=== PATIENT | male | born 1970 | race Caucasian/White ===

== ENCOUNTER 2021-09-18 08:43 | Inpatient (IN) ==
[2021-09-18 09:03] LABS: Basophils # 0.1 10*3/uL (0.0-0.2); Basophils % 0.8 % (0.0-0.8); Eosinophils # 0.3 10*3/uL (0.0-0.87); Eosinophils % 3.4 % (0.00-10.9); Hematocrit 44.6 VOL% (42.0-52.0); Hemoglobin 14.8 GM/DL (14.0-18.0); Immature Granulocytes % 0.4 %; Immature Granulocytes Absolute 0.03 #; Lymphocytes # 1.6 10*3/uL (1.4-4.0); Mean Corpuscular HGB Conc 33.2 GM/DL (32-36); Mean Corpuscular Volume 89.4 FL (87-102); Mean Platelet Volume 10.8 FL (9.6-12.0); Monocytes # 0.6 10*3/uL (0.11-0.8); Monocytes % 7.6 % (1.7-12.7); Neutrophils % 67.8 % (38.7-73.9); Platelet Count 224 T/CUMM (130-400); Red Blood Count 4.99 MC/CUMM (3.8-5.5); White Blood Count 7.8 T/CUMM (4-12)
[2021-09-18] MEDS ORDERED: methylPREDNISolone SOD SUC 125 MG/2 ML VIAL IV STA (09:12)
[2021-09-18] MEDS ORDERED: FUROSEMIDE 40 MG/4 ML VIAL IV STA (09:12)
[2021-09-18] MEDS ORDERED: ALBUTEROL/IPRATROPIUM 3 ML NEB RESP TX STA (09:12)
[2021-09-18 09:43] LABS: Alanine Aminotransferase 24 U/L (16-61); Albumin 3.8 G/DL (3.4-5.0); Alkaline Phosphatase 89 U/L (45-117); Aspartate Amino Transferase 12 U/L (0-37); Bilirubin,Total < 0.39 MG/DL (0.20-1.00); Blood Urea Nitrogen 19 MG/DL (7-18); Calcium 9.4 MG/DL (8.5-10.1); Carbon Dioxide 22 MMOL/L (21-32); Chloride 110 MMOL/L (98-107); Glucose 162 MG/DL (74-106); Osmolality,Calculated 282.5 MOS/KG (273-304); Potassium 4.3 MMOL/L (3.5-5.1); Sodium 139 MMOL/L (136-145); Total Protein 7.1 G/DL (6.4-8.2)
[2021-09-18] MEDS ORDERED: DOCUSATE SODIUM 100 MG CAPSULE PO PRN (12:03)
[2021-09-18] MEDS ORDERED: ONDANSETRON 4 MG/2 ML VIAL IV PRN (12:03)
[2021-09-18] MEDS ORDERED: ACETAMINOPHEN 325 MG TABLET PO PRN (12:03)
[2021-09-18] MEDS ORDERED: GLUCAGON 1 MG VIAL IM PRN (12:03)
[2021-09-18] MEDS ORDERED: DEXTROSE 50% 25 GM/50 ML VIAL IV PRN (12:13)
[2021-09-18] MEDS ORDERED: DEXTROSE 10% 250 ML BAG IV PRN (12:14)
[2021-09-18] MEDS: PANTOPRAZOLE 40 MG TABLET PO SCH (12:39)
[2021-09-18] MEDS ORDERED: HEPARIN/NACL 0.9% 2 UNITS/ML 2,000 UNIT/1,000 ML BAG IV ONE (12:49)
[2021-09-18] MEDS ORDERED: diphenhydrAMINE CAP 50 MG CAPSULE PO ONE (12:53)
[2021-09-18] MEDS ORDERED: DIAZEPAM 5 MG TABLET PO ONE (12:53)
[2021-09-18] MEDS ORDERED: NITROGLYCERIN DRIP 50 MG/250 ML BOTTLE IV ONE (13:22)
[2021-09-18] MEDS ORDERED: VERAPAMIL 5 MG/2 ML VIAL ONE (13:23)
[2021-09-18] MEDS ORDERED: fentaNYL 100 MCG/2 ML VIAL ONE (13:28)
[2021-09-18] MEDS ORDERED: MIDAZOLAM 2 MG/2 ML VIAL ONE ×2 (13:28→13:42)
[2021-09-18] MEDS ORDERED: ASPIRIN 325 MG TABLET ONE (13:30)
[2021-09-18] MEDS ORDERED: HYDROmorphone 1 MG/1 ML SYRINGE ONE (13:41)
[2021-09-18] MEDS ORDERED: HEPARIN 5,000 UNIT/1 ML VIAL ONE (13:45)
[2021-09-18] MEDS ORDERED: ALPRAZolam 0.25 MG TABLET PO PRN (16:26)
[2021-09-18] MEDS: INSULIN LISPRO 100 UNIT/ML SUBCUT SCH ×2 (17:36→21:06)
[2021-09-18] MEDS: carvediloL 3.125 MG TABLET PO SCH (18:00)
[2021-09-18] MEDS ORDERED: ATORVASTATIN 80 MG TABLET PO SCH (21:00)
[2021-09-18] MEDS ORDERED: ENOXAPARIN 40 MG/0.4 ML SYRINGE SUBCUT SCH (21:00)
[2021-09-18] MEDS ORDERED: ATORVASTATIN 40 MG TABLET PO SCH (21:00)
[2021-09-19 04:57] LABS: Basophils % 0.1 % (0.0-0.8); Hematocrit 40.5 VOL% (42.0-52.0); Hemoglobin 13.4 GM/DL (14.0-18.0); Immature Granulocytes % 0.6 %; Immature Granulocytes Absolute 0.11 #; Lymphocytes # 0.9 10*3/uL (1.4-4.0); Mean Corpuscular HGB Conc 33.1 GM/DL (32-36); Mean Corpuscular Volume 90.2 FL (87-102); Mean Platelet Volume 10.9 FL (9.6-12.0); Monocytes # 0.8 10*3/uL (0.11-0.8); Monocytes % 4.5 % (1.7-12.7); Neutrophils % 89.8 % (38.7-73.9); Platelet Count 217 T/CUMM (130-400); Red Blood Count 4.49 MC/CUMM (3.8-5.5); Red Cell Distribution Width 14.5 % (9.3-17.3); White Blood Count 17.8 T/CUMM (4-12)
[2021-09-19 05:19] LABS: Alanine Aminotransferase 21 U/L (16-61); Albumin 3.3 G/DL (3.4-5.0); Alkaline Phosphatase 82 U/L (45-117); Aspartate Amino Transferase 8 U/L (0-37); Bilirubin,Total < 0.39 MG/DL (0.20-1.00); Blood Urea Nitrogen 25 MG/DL (7-18); Calcium 9.1 MG/DL (8.5-10.1); Carbon Dioxide 25 MMOL/L (21-32); Chloride 106 MMOL/L (98-107); Cholesterol 139 MG/DL (50-200); Glucose 247 MG/DL (74-106); HDL Cholesterol 45 MG/DL (40-60); Osmolality,Calculated 284.8 MOS/KG (273-304); Potassium 4.4 MMOL/L (3.5-5.1); Risk Ratio 3.09; Sodium 137 MMOL/L (136-145); Total Protein 6.5 G/DL (6.4-8.2); Triglycerides 78 MG/DL (2-150); VLDL Cholesterol 15.6 MG/DL
[2021-09-19 05:23] LABS: Calcium 9.2 MG/DL (8.5-10.1); Osmolality,Calculated 284.8 MOS/KG (273-304); Potassium 4.4 MMOL/L (3.5-5.1)
[2021-09-19] MEDS ORDERED: ePHEDrine 50 MG/ML VIAL ONE (07:36)
[2021-09-19] MEDS ORDERED: KETAMINE 500 MG/10 ML VIAL ONE (07:36)
[2021-09-19] MEDS ORDERED: propofoL 200 MG/20 ML VIAL IV ONE (07:37)
[2021-09-19] MEDS ORDERED: ETOMIDATE 40 MG/20 ML VIAL IV ONE (07:37)
[2021-09-19] MEDS ORDERED: LIDOCAINE 2% 5 ML VIAL ONE (07:37)
[2021-09-19] MEDS: INSULIN LISPRO 100 UNIT/ML SUBCUT SCH ×2 (07:41→11:38)
[2021-09-19] MEDS ORDERED: SODIUM CHLORIDE 0.9% 1,000 ML IV SCH (08:00)
[2021-09-19] MEDS ORDERED: ALBUTEROL/IPRATROPIUM 3 ML NEB RESP TX ONE (08:12)
[2021-09-19] MEDS ORDERED: NON-FORMULARY MEDICATION (Pioglitazone 30 mg tablet) PO SCH (09:00)
[2021-09-19] MEDS ORDERED: DAPAGLIFLOZIN 10 MG TABLET PO SCH (09:00)
[2021-09-19] MEDS ORDERED: FUROSEMIDE 40 MG/4 ML VIAL IV SCH (09:00)
[2021-09-19] MEDS ORDERED: amLODIPine 5 MG TABLET PO SCH (09:00)
[2021-09-19] MEDS ORDERED: ASPIRIN EC 81 MG TABLET PO SCH (09:00)
[2021-09-19] MEDS: PANTOPRAZOLE 40 MG TABLET PO SCH (09:29)
[2021-09-19] MEDS: carvediloL 3.125 MG TABLET PO SCH (09:30)
[2021-09-19 12:00] VITALS: BP 130/92
[2021-09-19] MEDS ORDERED: EZETIMIBE 10 MG TABLET PO SCH (21:00)
[2021-09-20] MEDS ORDERED: FUROSEMIDE 20 MG TABLET PO SCH (09:00)
== END 2021-09-19 14:36 | disposition home or self-care (01) | DRG 280 ==
LOC: N.EDINP 08:43 → N.ED 08:43 → N.EDINP 13:08 → N.2W 15:18
PROVIDERS: ADMIT Internal Medicine; ATTEND Internal Medicine

== ENCOUNTER 2021-10-01 09:00 | Inpatient (IN) ==
[2021-10-01] MEDS ORDERED: GLUCAGON 1 MG VIAL IM PRN (09:40)
[2021-10-01] MEDS ORDERED: DEXTROSE 10% 250 ML BAG IV PRN (09:40)
[2021-10-01] MEDS ORDERED: SODIUM CHLORIDE 0.9% 1,000 ML IV SCH (10:00)
[2021-10-01] MEDS ORDERED: CLORAZEPATE 3.75 MG TABLET PO PRN (12:32)
[2021-10-01] MEDS: INSULIN REGULAR 100 UNIT/ML SUBCUT SCH ×3 (15:13→22:32)
[2021-10-01 15:20] LABS: Basophils # 0.1 10*3/uL (0.0-0.2); Eosinophils # 0.2 10*3/uL (0.0-0.87); Eosinophils % 3.3 % (0.00-10.9); Hematocrit 46.2 VOL% (42.0-52.0); Hemoglobin 15.5 GM/DL (14.0-18.0); Immature Granulocytes % 0.3 %; Immature Granulocytes Absolute 0.02 #; Lymphocytes # 1.6 10*3/uL (1.4-4.0); Lymphocytes % 21.5 % (21.2-54.2); Mean Corpuscular HGB Conc 33.5 GM/DL (32-36); Mean Corpuscular Volume 87.3 FL (87-102); Mean Platelet Volume 10.7 FL (9.6-12.0); Monocytes # 0.6 10*3/uL (0.11-0.8); Monocytes % 8.4 % (1.7-12.7); Neutrophils % 65.5 % (38.7-73.9); Platelet Count 246 T/CUMM (130-400); Red Blood Count 5.29 MC/CUMM (3.8-5.5); Red Cell Distribution Width 14.4 % (9.3-17.3); White Blood Count 7.4 T/CUMM (4-12)
[2021-10-01 15:38] LABS: Alanine Aminotransferase 32 U/L (16-61); Albumin 3.5 G/DL (3.4-5.0); Alkaline Phosphatase 101 U/L (45-117); Aspartate Amino Transferase 12 U/L (0-37); Bilirubin,Total < 0.39 MG/DL (0.20-1.00); Blood Urea Nitrogen 18 MG/DL (7-18); Carbon Dioxide 29 MMOL/L (21-32); Chloride 105 MMOL/L (98-107); Glucose 208 MG/DL (74-106); Osmolality,Calculated 286.4 MOS/KG (273-304); Sodium 140 MMOL/L (136-145); Total Protein 6.9 G/DL (6.4-8.2)
[2021-10-01 15:49] LABS: Arterial Base Excess iSTAT 3 MMOL/L (-2.5-2.5); Arterial Bicarbonate iSTAT 27.6 MMOL/L (20-26); Arterial O2 Saturation iSTAT 98 % (95-100); Arterial PCO2 iSTAT 42 MM HG (35-48); Arterial PO2 iSTAT 95 MM HG (80-95); Arterial Total CO2 iSTAT 29 MMO/L (23-27); Arterial pH iSTAT 7.427 (7.35-7.45)
[2021-10-01] MEDS: CHLORHEXIDINE 4% SOLN 118 ML BOTTLE TOP SCH ×2 (17:27→20:40)
[2021-10-01] MEDS ORDERED: DIAZEPAM 5 MG TABLET PO ONE (19:56)
[2021-10-01] MEDS ORDERED: PANTOPRAZOLE 40 MG TABLET PO ONE (19:56)
[2021-10-01] MEDS ORDERED: CHLORHEXIDINE 0.12% ORAL RINSE 60 ML BOTTLE SWISH/SPIT SCH (21:00)
[2021-10-02] MEDS: CHLORHEXIDINE 4% SOLN 118 ML BOTTLE TOP SCH (04:14)
[2021-10-02 04:15] VITALS: BP 122/62
[2021-10-02] MEDS ORDERED: VANCOMYCIN 1,000 MG VIAL ONE (04:19)
[2021-10-02] MEDS ORDERED: CEFUROXIME INJ 1,500 MG in SODIUM CHLORIDE 0.9% 100 ML IV ONE (05:00)
[2021-10-02] MEDS ORDERED: DIAZEPAM 5 MG TABLET PO ONE (05:30)
[2021-10-02] MEDS ORDERED: PANTOPRAZOLE 40 MG TABLET PO ONE (05:30)
[2021-10-02] MEDS ORDERED: MIDAZOLAM 10 MG/2 ML VIAL ONE ×5 (05:47→10:29)
[2021-10-02] MEDS ORDERED: CALCIUM CHLORIDE 1,000 MG/10 ML VIAL IV ONE ×3 (05:47→12:11)
[2021-10-02] MEDS ORDERED: AMINOCAPROIC ACID 5,000 MG/20 ML VIAL ONE (05:47)
[2021-10-02] MEDS ORDERED: VECURONIUM 10 MG VIAL IV ONE (05:47)
[2021-10-02] MEDS ORDERED: SEVOFLURANE 1 UNIT/15 MINUTE INH ONE (05:47)
[2021-10-02] MEDS ORDERED: SUFentanil 250 MCG/5 ML AMP ONE ×4 (05:48→10:29)
[2021-10-02] MEDS ORDERED: HEPARIN/NACL 0.9% 2 UNITS/ML 1,000 UNIT/500 ML BAG IV ONE ×2 (05:48→11:58)
[2021-10-02] MEDS ORDERED: NITROGLYCERIN DRIP 50 MG/250 ML BOTTLE IV ONE (05:53)
[2021-10-02] MEDS ORDERED: PHENYLEPHRINE DRIP 0 MG/0 ML PREMIX IV ONE (05:53)
[2021-10-02] MEDS ORDERED: LACTATED RINGERS 1,000 ML IV ONE (05:54)
[2021-10-02] MEDS ORDERED: SODIUM CHLORIDE 0.9% 250 ML IV ONE (05:54)
[2021-10-02] MEDS ORDERED: SODIUM CHLORIDE 0.9% 1,000 ML IV ONE (05:54)
[2021-10-02] MEDS ORDERED: MINERAL OIL/PETROLATUM OPH OINT 3.5 GM TUBE ONE (06:03)
[2021-10-02] MEDS ORDERED: ETOMIDATE 40 MG/20 ML VIAL IV ONE (06:03)
[2021-10-02 07:24] LABS: ABG Base Excess 0.3 MMOL/L (-2.5-2.5); ABG HCO3 24.7 MMOL/L (20-26); ABG Oxygen Saturation 99.7 % (95-100); ABG PCO2 35.5 MM HG (35-48); ABG PH 7.437 (7.35-7.45); ABG TCO2 20.2 MMOL/L (23-27); Glucose Heart Surgery 174 MG/DL (74-106); Hematocrit Heart Surgery 46.3 PERCENT (42-52); Hemoglobin Heart Surgery 15.1 G/DL (14.0-18.0); Ionized Calcium Arterial 1.15 MMOL/L (1.21-1.46); PCO2 Patient Temp Arterial 35.5 MMHG; PH Patient Temp Arterial 7.437; Patient Temperature 37 CELCIUS; Potassium Heart/CVR 4.5 MMOL/L (3.5-5.1); Sodium Heart/CVR 138 MMOL/L (135-145)
[2021-10-02 07:28] LABS: Bacteria,Urine Occasional /HPF (Few); Glucose,Urine (UA) 500 mg/dL (Negative); Ketones,Urine Negative (Negative); Nitrite,Urine Negative (Negative); Protein,Urine 100 mg/dL (Negative); RBC,Urine <1 /HPF (0-4); Squamous Epithelial Cell,Urine Occasional /HPF (0-10); Urine Appearance Clear (Clear); Urine Color Yellow (Yellow)
[2021-10-02 07:29] LABS: Bilirubin,Urine Negative (Negative); Blood, Urine Negative (Negative); Urine Urobilinogen 0.2 eU/dL (<2.0)
[2021-10-02 08:31] LABS: Hematocrit Heart Surgery 35.8 PERCENT (42-52); Hemoglobin Heart Surgery 11.6 G/DL (14.0-18.0); PCO2 Patient Temp Venous 42.6 MM HG; PH Patient Temp Venous 7.405; PO2 Patient Temp Venous 47.8 MM HG; Potassium Heart/CVR 4.8 MMOL/L (3.5-5.1); VBG Base Excess 1.7 MEQ/L (0-4); VBG HCO3 25.7 MEQ/L (24-28); VBG Oxygen Saturation 85.3 %; VBG PCO2 46.9 MMHG (41-51); VBG PH 7.376; VBG PO2 54.8 MMHG (17-40); VBG Total CO2 24.6 MMOL/L
[2021-10-02 09:32] LABS: Hematocrit Heart Surgery 38.6 PERCENT (42-52); Hemoglobin Heart Surgery 12.6 G/DL (14.0-18.0); PCO2 Patient Temp Venous 40.4 MM HG; PH Patient Temp Venous 7.411; PO2 Patient Temp Venous 46.2 MM HG; Potassium Heart/CVR 4.8 MMOL/L (3.5-5.1); VBG Oxygen Saturation 86.4 %; VBG PCO2 46.7 MMHG (41-51); VBG PH 7.367; VBG PO2 56.7 MMHG (17-40); VBG Total CO2 23.8 MMOL/L
[2021-10-02 09:45] LABS: Hematocrit Heart Surgery 37.1 PERCENT (42-52); PCO2 Patient Temp Venous 45.9 MM HG; PH Patient Temp Venous 7.368; PO2 Patient Temp Venous 50.2 MM HG; VBG Base Excess 0.6 MEQ/L (0-4); VBG HCO3 24.6 MEQ/L (24-28); VBG Oxygen Saturation 80.8 %; VBG PCO2 45.9 MMHG (41-51); VBG PH 7.368; VBG PO2 50.2 MMHG (17-40); VBG Total CO2 23.5 MMOL/L
[2021-10-02] MEDS ORDERED: AMIODARONE 150 MG/3 ML VIAL ONE ×3 (09:45→12:46)
[2021-10-02 09:46] LABS: Potassium Heart/CVR 6.5 MMOL/L (3.5-5.1)
[2021-10-02] MEDS ORDERED: ESMOLOL 100 MG/10 ML VIAL IV ONE (09:53)
[2021-10-02] MEDS ORDERED: NITROPRUSSIDE 50 MG/2 ML VIAL ONE (10:08)
[2021-10-02] MEDS ORDERED: SODIUM BICARBONATE 50 MEQ/50 ML VIAL IV ONE ×2 (10:08→12:00)
[2021-10-02] MEDS ORDERED: ALBUMIN 5% 12.5 GM/250 ML VIAL IV ONE ×3 (10:09→11:59)
[2021-10-02] MEDS ORDERED: POTASSIUM CHLORIDE RIDER 20 MEQ/100 ML PREMIX IV ONE (10:09)
[2021-10-02] MEDS ORDERED: PHENYLEPHRINE DRIP 40 MG/250 ML PREMIX IV ONE (10:09)
[2021-10-02] MEDS ORDERED: CALCIUM CHLORIDE 1,000 MG/10 ML SYRINGE IV ONE (10:09)
[2021-10-02] MEDS ORDERED: LIDOCAINE 100 MG/5 ML SYRINGE ONE (10:11)
[2021-10-02] MEDS ORDERED: ATROPINE 1 MG/10 ML SYRINGE ONE (10:11)
[2021-10-02] MEDS ORDERED: EPINEPHrine 1 MG/10 ML SYRINGE ONE (10:12)
[2021-10-02 10:14] LABS: Hematocrit Heart Surgery 37.2 PERCENT (42-52); Hemoglobin Heart Surgery 12.1 G/DL (14.0-18.0); PCO2 Patient Temp Venous 55.6 MM HG; PH Patient Temp Venous 7.295; PO2 Patient Temp Venous 47.5 MM HG; Potassium Heart/CVR 5.9 MMOL/L (3.5-5.1); VBG Base Excess -0.5 MEQ/L (0-4); VBG HCO3 23.5 MEQ/L (24-28); VBG Oxygen Saturation 74.5 %; VBG PCO2 55.6 MMHG (41-51); VBG PH 7.295; VBG PO2 47.5 MMHG (17-40); VBG Total CO2 24.4 MMOL/L
[2021-10-02 10:48] LABS: Hematocrit Heart Surgery 32.7 PERCENT (42-52); Hemoglobin Heart Surgery 10.6 G/DL (14.0-18.0); PCO2 Patient Temp Venous 52.2 MM HG; PH Patient Temp Venous 7.307; PO2 Patient Temp Venous 46.7 MM HG; Potassium Heart/CVR 5.9 MMOL/L (3.5-5.1); VBG Base Excess -0.8 MEQ/L (0-4); VBG HCO3 23.4 MEQ/L (24-28); VBG Oxygen Saturation 77.6 %; VBG PCO2 54.8 MMHG (41-51); VBG PH 7.293; VBG Total CO2 24.4 MMOL/L
[2021-10-02 11:15] LABS: Hematocrit Heart Surgery 34.4 PERCENT (42-52); Hemoglobin Heart Surgery 11.1 G/DL (14.0-18.0); PCO2 Patient Temp Venous 50.6 MM HG; PH Patient Temp Venous 7.329; PO2 Patient Temp Venous 49.3 MM HG; Potassium Heart/CVR 5.3 MMOL/L (3.5-5.1); VBG HCO3 24.1 MEQ/L (24-28); VBG Oxygen Saturation 78.8 %; VBG PCO2 50.6 MMHG (41-51); VBG PH 7.329; VBG PO2 49.3 MMHG (17-40); VBG Total CO2 24.2 MMOL/L
[2021-10-02 11:43] LABS: ABG Base Excess -2.2 MMOL/L (-2.5-2.5); ABG HCO3 22.6 MMOL/L (20-26); ABG Oxygen Saturation 99.7 % (95-100); ABG PCO2 38.2 MM HG (35-48); ABG TCO2 20.2 MMOL/L (23-27); Glucose Heart Surgery 301 MG/DL (74-106); Hematocrit Heart Surgery 35.2 PERCENT (42-52); Hemoglobin Heart Surgery 11.4 G/DL (14.0-18.0); Ionized Calcium Arterial 1.32 MMOL/L (1.21-1.46); PCO2 Patient Temp Arterial 38.2 MMHG; Patient Temperature 37 CELCIUS; Potassium Heart/CVR 4.7 MMOL/L (3.5-5.1); Sodium Heart/CVR 132 MMOL/L (135-145)
[2021-10-02] MEDS ORDERED: MAGNESIUM SULFATE 5 GM/10 ML VIAL IV ONE (11:57)
[2021-10-02] MEDS ORDERED: LIDOCAINE 2% 5 ML VIAL ONE (11:57)
[2021-10-02] MEDS ORDERED: ALBUMIN 25% 25 GM/100 ML VIAL IV ONE (11:57)
[2021-10-02] MEDS ORDERED: PROTAMINE SULFATE 250 MG/25 ML VIAL IV ONE (11:58)
[2021-10-02] MEDS ORDERED: DEXTROSE 5% KCL 20 MEQ 40 MEQ/2,000 ML BAG IV ONE (11:58)
[2021-10-02] MEDS ORDERED: methylPREDNISolone SOD SUC 1,000 MG/8 ML VIAL ONE (11:58)
[2021-10-02] MEDS ORDERED: FUROSEMIDE 20 MG/2 ML VIAL ONE (11:59)
[2021-10-02] MEDS ORDERED: MANNITOL 12.5 GM/50 ML VIAL IV ONE (11:59)
[2021-10-02] MEDS ORDERED: HEPARIN 10,000 UNIT/10 ML VIAL ONE (11:59)
[2021-10-02] MEDS ORDERED: PROTAMINE SULFATE 50 MG/5 ML VIAL IV ONE (12:00)
[2021-10-02] MEDS ORDERED: POTASSIUM CHLORIDE 20 MEQ/10 ML VIAL ONE (12:00)
[2021-10-02] MEDS ORDERED: PHENYLEPHRINE DRIP 20 MG/250 ML PREMIX IV ONE (12:15)
[2021-10-02] MEDS ORDERED: AMIODARONE 450 MG/9 ML VIAL IV ONE (12:46)
[2021-10-02] MEDS ORDERED: VECURONIUM 10 MG VIAL IV PRN ×2 (13:04)
[2021-10-02] MEDS ORDERED: MAGNESIUM SULF RIDER 4 GM/100 ML PREMIX IV PRN (13:04)
[2021-10-02] MEDS ORDERED: MIDAZOLAM 2 MG/2 ML VIAL IV PRN (13:04)
[2021-10-02] MEDS ORDERED: POTASSIUM CHLORIDE RIDER 10 MEQ/100 ML PREMIX IV PRN (13:04)
[2021-10-02] MEDS ORDERED: INSULIN REGULAR 100 UNIT/ML IV PRN (13:04)
[2021-10-02] MEDS ORDERED: ACETAMINOPHEN 650 MG SUPP RECTAL PRN (13:04)
[2021-10-02] MEDS ORDERED: POTASSIUM CHLORIDE RIDER 20 MEQ/100 ML PREMIX IV PRN (13:04)
[2021-10-02] MEDS ORDERED: CHLORHEXIDINE 4% SOLN 118 ML BOTTLE TOP PRN (13:04)
[2021-10-02] MEDS ORDERED: MORPHINE 10 MG/1 ML VIAL IV PRN (13:04)
[2021-10-02] MEDS ORDERED: CALCIUM CHLORIDE 1,000 MG/10 ML SYRINGE IV PRN (13:04)
[2021-10-02] MEDS ORDERED: ONDANSETRON 4 MG/2 ML VIAL IV PRN (13:04)
[2021-10-02] MEDS ORDERED: MAGNESIUM SULF RIDER 2 GM/50 ML PREMIX IV PRN (13:04)
[2021-10-02] MEDS ORDERED: ALBUMIN 5% 12.5 GM/250 ML VIAL IV PRN (13:04)
[2021-10-02] MEDS ORDERED: LACTATED RINGERS 250 ML IV PRN (13:04)
[2021-10-02] MEDS ORDERED: SODIUM CHLORIDE 0.45% 1,000 ML IV SCH ×2 (13:04)
[2021-10-02] MEDS ORDERED: NITROPRUSSIDE 100 MG in DEXTROSE 5% 250 ML IV PRN (13:04)
[2021-10-02] MEDS ORDERED: INSULIN REGULAR DRIP 100 ML IV SCH (13:04)
[2021-10-02] MEDS ORDERED: MIDAZOLAM 10 MG/2 ML VIAL IV PRN (13:04)
[2021-10-02] MEDS ORDERED: PHENYLEPHRINE DRIP 40 MG/250 ML PREMIX IV PRN (13:04)
[2021-10-02] MEDS ORDERED: INSULIN REGULAR 100 UNIT/ML IV ONE (13:04)
[2021-10-02] MEDS ORDERED: DOBUTamine 500 MG/250 ML PREMIX IV PRN (13:06)
[2021-10-02] MEDS ORDERED: DEXTROSE 10% 250 ML BAG IV PRN ×2 (13:12)
[2021-10-02 13:22] LABS: ABG Base Excess -3.1 MMOL/L (-2.5-2.5); ABG HCO3 21.9 MMOL/L (20-26); ABG Oxygen Saturation 99.3 % (95-100); ABG PCO2 44.8 MM HG (35-48); ABG PH 7.321 (7.35-7.45); ABG TCO2 20.6 MMOL/L (23-27); Glucose Heart Surgery 285 MG/DL (74-106); Hematocrit Heart Surgery 37.8 PERCENT (42-52); Hemoglobin Heart Surgery 12.3 G/DL (14.0-18.0)
[2021-10-02 13:27] LABS: Basophils # 0.1 10*3/uL (0.0-0.2); Basophils % 0.3 % (0.0-0.8); Eosinophils # 0.1 10*3/uL (0.0-0.87); Eosinophils % 0.3 % (0.00-10.9); Hematocrit 36.7 VOL% (42.0-52.0); Immature Granulocytes Absolute 0.26 #; Lymphocytes # 1.1 10*3/uL (1.4-4.0); Mean Corpuscular HGB Conc 32.7 GM/DL (32-36); Mean Corpuscular Volume 89.7 FL (87-102); Mean Platelet Volume 11.1 FL (9.6-12.0); Monocytes # 0.7 10*3/uL (0.11-0.8); Monocytes % 2.7 % (1.7-12.7); Neutrophils % 91.7 % (38.7-73.9); Platelet Count 235 T/CUMM (130-400); Red Blood Count 4.09 MC/CUMM (3.8-5.5); Red Cell Distribution Width 14.6 % (9.3-17.3); White Blood Count 27.2 T/CUMM (4-12)
[2021-10-02] MEDS ORDERED: AMIODARONE INJ 450 MG in DEXTROSE 5% 241 ML IV SCH (13:30)
[2021-10-02 13:38] LABS: INR 1.1; PT Patient Result 11.9 SECS (10.1-12.1); Partial Thromboplastin Time 34.4 SECS (23.7-32.9)
[2021-10-02 13:40] LABS: CKMB % 9.78 %
[2021-10-02 13:46] LABS: Calcium 9.6 MG/DL (8.5-10.1); Osmolality,Calculated 288.5 MOS/KG (273-304); Potassium 5.2 MMOL/L (3.5-5.1); Total Protein 5.2 G/DL (6.4-8.2)
[2021-10-02 13:53] LABS: Band Neutrophils 1 % (0-10); Lymphocytes 4 % (20-55); Platelet Estimate Adequate; Total Cells Counted 100
[2021-10-02] MEDS ORDERED: LIDOCAINE 100 MG/5 ML SYRINGE IV ONE (14:00)
[2021-10-02] MEDS ORDERED: EPINEPHrine 1 MG/10 ML SYRINGE IV ONE (14:02)
[2021-10-02] MEDS ORDERED: SODIUM BICARBONATE 50 MEQ/50 ML SYRINGE IV ONE (14:08)
[2021-10-02] MEDS ORDERED: AMIODARONE 150 MG/3 ML VIAL IV ONE (14:17)
[2021-10-02] MEDS ORDERED: CEFUROXIME INJ 1,500 MG in SODIUM CHLORIDE 0.9% 100 ML IV SCH (20:00)
[2021-10-02] MEDS ORDERED: CHLORHEXIDINE 0.12% ORAL RINSE 60 ML BOTTLE SWISH/SPIT SCH (21:00)
== END 2021-10-02 14:28 | disposition expired | DRG 219 ==
LOC: N.5E 14:19 → N.CVR 10-02 12:15